=== PATIENT | female | born 1980 | race Caucasian/White ===

== ENCOUNTER 2016-08-18 13:48 | Emergency (ER) | payer OTHER ==
[~2016-08-18] VITALS: Wt 63.0 kg
[~2016-08-18 13:48] MED LIST: FER325 PO; PRENAT PO
[2016-08-18] MEDS ORDERED: IBUP-1542 PO (14:38)
[2016-08-18] MEDS ORDERED: AMO500 PO (14:38)
[2016-08-18 15:33] VITALS: BP 135/74; PULSE 71; RESP 18; TEMP 98
--- NOTE | 2016-08-28 10:45 | ERD ---
ER Documentation Chief Complaint Date/Time DATE: 08/28/16 TIME: 10:44 Chief Complaint SORE THROAT FOR 1 WK. TROUBLE SWALLOWING AND INTERMITTENT FEVERS. HPI This 36-year-old female presents with sore throat for last week with intermittent subjective fevers. She has cough, vomiting, abdominal pain, neck stiffness, rashes. ROS All systems reviewed and are negative except as per history of present illness. Medications Home Meds Active Scripts Ibuprofen* (Motrin*) 600 Mg Tab, 600 MG PO Q6, #15 TAB Prov:АННА ANDINO MD 08/18/16 Amoxicillin* (Amoxicillin*) 500 Mg Cap, 500 MG PO TID for 10 Days, CAP Prov:АННА ANDINO MD 08/18/16 Reported Medications Ferrous Sulfate* (Ferrous Sulfate*) 325 Mg Tabec, 325 MG PO DAILY, TAB 01/05/16 Multivit/Min/Fol Ac/Iron/Pren* ( S*) 1 Tab Tab, 1 TAB PO DAILY, TAB 01/05/16 Allergies Allergies: Coded Allergies: No Known Allergies (Verified Allergy, Mild, 02/03/16) PMhx/Soc Medical and Surgical Hx: pt denies Medical Hx, pt denies Surgical Hx History of Surgery: No Anesthesia Reaction: No Hx Neurological Disorder: No Hx Respiratory Disorders: No Hx Cardiac Disorders: No Hx Psychiatric Problems: No Hx Miscellaneous Medical Probl: No Hx Alcohol Use: No Hx Substance Use: No Hx Tobacco Use: No Physical Exam Physical Exam Const: [] Alert, not ill-appearing. Head: Atraumatic Eyes: Normal Conjunctiva ENT: Normal External Ears, Nose and Mouth. Tonsils 3+ with erythema. Uvula is midline and airway is patent. Slight anterior cervical lymphadenitis Neck: Full range of motion..~ No meningismus. Resp: Clear to auscultation bilaterally Cardio: Regular rate and rhythm, no murmurs Abd: Soft, non tender, non distended. Normal bowel sounds Skin: No petechiae or rashes Back: No midline or flank tenderness Ext: No cyanosis, or edema Neur: Awake and alert Psych: Normal Mood and Affect Procedures/MDM Patient presents with signs and symptoms of acute pharyngitis without evidence of airway compromise, abscess. She was treated with amoxicillin and ibuprofen. The patient was stable with no new complaints during the ER course. Clinically , there is no current evidence to suggest meningitis, sepsis, acute abdomen, pneumonia, acute coronary syndrome, pulmonary embolism, or any other emergent condition appearing to require further evaluation or hospitalization. The patient should certainly return for any new or worsening symptoms per the aftercare instructions. They should otherwise follow-up with her primary care doctor for reevaluation this week. Departure Diagnosis: Primary Impression: Sore throat Condition: Stable Patient Instructions: Pharyngitis, Strep (Presumed) Additional Instructions: Recheck for new or worsening symptoms or primary care doctor. АННА ANDINO MD Aug 28, 2016 10:45
== END 2016-08-18 15:34 | disposition home or self-care (01) ==
LOC: FTE 13:48
DX: J02.9 Acute pharyngitis, unspecified (principal)
CPT/HCPCS: 99283

== ENCOUNTER 2017-01-01 12:30 | Emergency (ER) | payer OTHER ==
[~2017-01-01] VITALS: Ht 157.5 cm; Wt 50.5 kg
[~2017-01-01 12:30] MED LIST changes: +AMO500 PO; +IBUP-1542 PO
[2017-01-01 12:45] VITALS: Ht 157.5 cm; Wt 50.5 kg
--- NOTE | 2017-01-01 15:44 | ERA ---
ER Documentation Chief Complaint Date/Time DATE: 01/01/17 TIME: 15:40 Chief Complaint dizzy since last night states she feels like the room is spinning HPI 36-year-old female with a chief complaint of dizziness 2 days. Patient has similar symptoms in the past that spontaneously resolved. Denies any changes in hearing, changes in vision,, pain, fever, nausea, vomiting, diarrhea, constipation, chest pain, shortness of breath. Had GI on this 1-2 weeks ago that spontaneously resolved. Patient has a history of alcohol abuse. States that liver function is poor with unknown etiology. Patient has no other complaints and describes no other associated manifestations. ROS All systems reviewed and are negative except as per history of present illness. Medications Home Meds Active Scripts Ibuprofen* (Motrin*) 600 Mg Tab, 600 MG PO Q6, #15 TAB Prov:АННА ANDINO MD 08/18/16 Amoxicillin* (Amoxicillin*) 500 Mg Cap, 500 MG PO TID for 10 Days, CAP Prov:АННА ANDINO MD 08/18/16 Reported Medications Ferrous Sulfate* (Ferrous Sulfate*) 325 Mg Tabec, 325 MG PO DAILY, TAB 01/05/16 Multivit/Min/Fol Ac/Iron/Pren* ( S*) 1 Tab Tab, 1 TAB PO DAILY, TAB 01/05/16 Allergies Allergies: Coded Allergies: No Known Allergies (Verified Allergy, Mild, 02/03/16) PMhx/Soc History of Surgery: No Anesthesia Reaction: No Hx Neurological Disorder: No Hx Respiratory Disorders: No Hx Cardiac Disorders: No Hx Psychiatric Problems: No Hx Miscellaneous Medical Probl: No Hx Alcohol Use: No Hx Substance Use: No Hx Tobacco Use: No Physical Exam Vitals Vital Signs Date Time Temp Pulse Resp B/P Pulse Ox O2 Delivery O2 Flow Rate FiO2 01/01/17 12:45 99.1 78 20 137/70 99 Physical Exam Const: Well-appearing. No acute distress. Head: Normocephalic, Atraumatic. Eyes: No nystagmus. Maria C's/Heber-Hallpike unremarkable. Non-injected; No discharge. EOMI and YOVANA bilaterally. Ears: Normal External Ears, EACs clear, TM normal bilaterally without erythema. Nose: Normal external nose; no discharge, or sinus tenderness. Oral: No oral edema visualized. Mucous membranes moist and pink. Neck: No cervical lymphadenopathy, or masses palpated. Supple ~ No meningismus. Pulm: Good air movement in upper and lower respiratory tracts. Clear to auscultation bilaterally. No dyspnea or stridor. Cardio: Regular rate and rhythm; No murmurs, gallops or rubs auscultated. Radia pulses 2+ bilaterally. No cyanosis noted. Capillary refill less than 2 seconds. Abd: Normal bowel sounds. Soft, non tender, non distended. MS: Normal motor strength, normal tone with gross examination. Skin: No petechiae or rashes. Good turgor. Back: No midline, flank or CVA tenderness. Ext: No edema. Normal movement of all extremities grossly observed. Neur: Neurovascularly intact bilaterally. Psych: Normal Mood and Affect. Procedures/MDM 36-year-old female with history of alcohol abuse presents with a chief complaint of vertigo that is worse with movement. Patient had a GI illness 2 weeks ago that spontaneously resolved. My differential diagnosis includes but is not limited to the following: Space-occupying lesion, meningitis, ACS, encephalopathy, Warneke's, among others. Patient had an unremarkable Yobani- Hallpike/Maria C's maneuvers. Similar symptoms in the past have resolved spontaneously and were improved with meclizine p.o. I have little suspicion for intracranial pathology, meningitis or other serious bacterial infection. Patient denies alcohol use within the past 1 year. Denies sexual activity. At this time I will treat the patient with meclizine with referral outpatient. Most likely diagnosis is BPV, vs vestibular neuritis vs labyrinthitis. Patient' s vitals are stable and her current condition spelled for discharge. Patient is not driving. Will be given discharge instructions and return precautions. Discharge medications: Meclizine. Departure Diagnosis: Primary Impression: Dizziness Condition: Stable Additional Instructions: Follow up with your PCP within the next 1-3 days for a more thorough evaluation and a possible referral to a specialist. Return the the emergency department immediately if symptoms worsen or change. If you have any questions regarding medications, ask your pharmacist or us before you leave. If any adverse reactions occur while taking your medications, discontinue the treatment and return to the emergency department immediately. Take your medications as directed, and complete the entire course of treatment. MIKE CRAIN PA-C Jan 01, 2017 15:44
[2017-01-01] MEDS ORDERED: MECL-77 PO (15:46)
[2017-01-01 16:42] VITALS: BP 124/73; PULSE 65; RESP 17; TEMP 98
== END 2017-01-01 16:42 | disposition home or self-care (01) ==
LOC: FTE 12:30
DX: R42 Dizziness and giddiness (principal)
CPT/HCPCS: 99283

== ENCOUNTER 2018-06-22 15:18 | Emergency (ER) | payer OTHER ==
[~2018-06-22] VITALS: Ht 154.9 cm; Wt 60.0 kg
[~2018-06-22 15:18] MED LIST changes: -AMO500 PO; +AMOX500C2 PO; +MECL-77 PO
[2018-06-22 15:27] VITALS: BP 112/54; PULSE 81; RESP 18; Ht 154.9 cm; Wt 60.0 kg
[2018-06-22] MEDS ORDERED: KETOROLAC 30 MG INJ IM STA (18:25)
--- NOTE | 2018-06-22 18:32 | ERD ---
ER Documentation Chief Complaint Chief Complaint LOWER BACK PAIN X FEW MONTHS , WORSE TODAY HPI Patient is a 37-year-old female with history of chronic back pain presents to the ED with complaints of exacerbation of her chronic pain. Patient states she has had lumbar back pain ongoing for the past 4 years. She states she was picking up her baby from the shower earlier today when she developed the same pain. Pain is localized to her lower lumbar area and radiates to her bilateral sides. She describes the pain as a stretching, squeezing sensation, 8 out of 10 intensity and worse when bending or walking. She denies any numbness or tingling down her lower extremities, denies any bowel or bladder incontinence. Denies any fevers or chills, neck pain, or any other symptoms. Denies any trauma. She has not had any prior imaging to her back. She has a distant history of alcohol use. No history of illicit drug use. ROS All systems reviewed and are negative except as per history of present illness. Medications Home Meds Active Scripts Ibuprofen* (Motrin*) 600 Mg Tab, 600 MG PO Q6 for pain, #30 TAB Prov:BABAK RENEE PA-C 06/22/18 Meclizine Hcl* (Meclizine Hcl*) 25 Mg Tablet, 25 MG PO Q8H PRN for DIZZINESS for 5 Days, TAB Prov:MIKE CRAIN PA-C 01/01/17 Ibuprofen* (Motrin*) 600 Mg Tab, 600 MG PO Q6, #15 TAB Prov:АННА ANDINO MD 08/18/16 Amoxicillin* (Amoxicillin*) 500 Mg Cap, 500 MG PO TID for 10 Days, CAP Prov:АННА ANDINO MD 08/18/16 Reported Medications Ferrous Sulfate* (Ferrous Sulfate*) 325 Mg Tabec, 325 MG PO DAILY, TAB 01/05/16 Multivit/Min/Fol Ac/Iron/Pren* ( S*) 1 Tab Tab, 1 TAB PO DAILY, TAB 01/05/16 Allergies Allergies: Coded Allergies: No Known Allergies (Verified Allergy, Mild, 02/03/16) PMhx/Soc Medical and Surgical Hx: pt denies Medical Hx, pt denies Surgical Hx History of Surgery: No Anesthesia Reaction: No Hx Neurological Disorder: No Hx Respiratory Disorders: No Hx Cardiac Disorders: No Hx Psychiatric Problems: No Hx Miscellaneous Medical Probl: No Hx Alcohol Use: No Hx Substance Use: No Hx Tobacco Use: No Smoking Status: Never smoker Physical Exam Vitals Vital Signs Date Temp Pulse Resp B/P (MAP) Pulse Ox O2 O2 Flow FiO2 Time Delivery Rate 06/22/18 98.1 81 18 112/54 98 15:27 (73) Physical Exam Const: No acute distress Head: Atraumatic Eyes: Normal Conjunctiva ENT: Normal External Ears, Nose and Mouth. Neck: Full range of motion. No meningismus. Abd: Soft, non tender, non distended. Normal bowel sounds Skin: No petechiae or rashes Back Exam: Skin: No bruising or rash Compartments: Soft Motor: + Pain with hip flexion. Normal flexion and extension of bilateral /knee/ankle/foot. Lower extremity DTRs 2+ Sensation: Intact to light touch throughout Bones: No midline TTP. + Moderate tenderness along sacroiliac notch. No step offs Ext: No cyanosis, or edema Neur: Awake and alert Psych: Normal Mood and Affect Results 24 hrs Laboratory Tests Test 06/22/18 19:08 POC Beta HCG, Qualitative NEGATIVE Current Medications Medications Dose Sig/Ana Start Time Status Last (Trade) Ordered Route PRN Stop Time Admin Dose Reason Admin Ketorolac 30 mg ONCE STAT 06/22/18 DC 06/22/18 Tromethamine IM 18:25 19:11 (Toradol) 06/22/18 18:26 Procedures/MDM EMERGENT DIAGNOSTIC WORK UP: Imaging as interpreted by the radiologist: PROCEDURE: XR Lumbar Spine. CLINICAL INDICATION: low back pain TECHNIQUE: AP, lateral and cone-down lateral view of the lumbar spine were obtained. COMPARISON: No prior studies are available for comparison. FINDINGS: There is normal vertebral mineralization. No fracture or subluxation is seen. There is mild disc space narrowing at L5-S1. The remaining disc spaces are maintained. The posterior elements are unremarkable. The soft tissues appear normal. IMPRESSION: There is mild disc space narrowing at L5-S1. RPTAT:AAJJ Physician Angel Date Time Electronically viewed and signed by Scott Darnell Physician on 06/22/2018 19:36 EMERGENCY DEPARTMENT COURSE/MEDICAL DECISION MAKING Patient is a 37 year old female with history of chronic low back pain who presents to the ED with exacerbation of her pain status post lifting her baby earlier today. Patient has no focal neurological deficits on physical exam. XR of the lumbar spine showed mild disc space narrowing at L5-S1 consistent, consistent with spinal stenosis. I discusses these results with patient at bedside. I recommended she follow up with her PCP in 2 days for a referral to physical therapy or an orthopedic surgeon. She was given a copy of her results and discharged home with a prescription for Motrin. Pain improved status post IM Toradol. No evidence of cauda equina, cord compression, infiltrative, or infectious etiology. Follow up with PCP as discussed. Strict return precautions given. DISPOSITION PLAN: We discussed follow up with the patient's primary care doctor within 24 to 48 hours. A list of community clinics have been referred to those who have not yet established care with a PCP. Patient counseled regarding my diagnostic impression and care plan. Prior to discharge all questions answered. Pt agrees with treatment plan and understands strict return precautions. Precautionary instructions provided including instructions to return to the ER if not improving or for any worsening or changing symptoms or concerns. Prior to discharge, patients vital signs have been reviewed SPECIALIST FOLLOW UP RECOMMENDED: None Patient has been advised to follow up with primary care in 1-2 days. Departure Diagnosis: Primary Impression: Spinal stenosis of lumbar region Additional Impression: Acute exacerbation of chronic low back pain Condition: Stable Patient Instructions: Back Pain (Acute Or Chronic) Referrals: LUKE VALADEZ MD, ZEPYUR N PA-C Jun 22, 2018 18:32
[2018-06-22] MEDS ORDERED: IBUP-1542 PO (19:50)
== END 2018-06-22 20:03 | disposition home or self-care (01) ==
LOC: FTE 15:18
DX: M48.061 Spinal stenosis, lumbar region without neurogenic claudication (principal)
CPT/HCPCS: 72100; 81025; 96372; J1885; Z7502